=== PATIENT | female | born 1965 | race Caucasian/White ===

== ENCOUNTER 2017-12-26 17:42 | Emergency (ER) | payer BC ==
[2017-12-26 17:48] VITALS: BP 123/75; PULSE 102; RESP 18; TEMP 97.9
[2017-12-26] MEDS ORDERED: SODIUM CHLORIDE 0.9% 500 ML IV ONE (18:45)
[2017-12-26] MEDS ORDERED: MAG HYDROX/AL HYDROX/SIMETH 30 ML, HYOSCYAMINE ELIXIR 10 ML, CIMETIDINE HCL 300 MG, LID... PO STA ×4 (18:45)
--- NOTE | 2017-12-26 19:11 | XR ---
EXAMINATION TYPE: XR chest 2V DATE OF EXAM: 12/26/2017 COMPARISON: NONE HISTORY: Chest pain per order. TECHNIQUE: Frontal and lateral views of the chest are obtained. FINDINGS: There is chronic parenchymal change without suspicious focal air space opacity, pleural ef fusion, or pneumothorax seen. There is moderate biapical pleural/parenchymal scarring. The cardiac s ilhouette size is within normal limits. The osseous structures are demineralized. IMPRESSION: Chronic emphysematous change without acute pulmonary process.
--- NOTE | 2017-12-26 19:23 | ED ---
Chest Pain HPI - General Chief Complaint: Chest Pain Stated Complaint: Chest Pain Time Seen by Provider: 12/26/17 18:15 Source: patient Mode of arrival: wheelchair Limitations: no limitations - History of Present Illness Initial Comments: 52-year-old female patient presents to the emergency department today for evaluation of burning chest pain. Patient states it is mostly left-sided but does radiate over to the right side. Patient states it radiates up into her left shoulder and into her back. Patient states that this started earlier today. States that she is also feeling lightheaded. States this could be related to decreased food intake today. Patient states that she does have a history of acid reflux, but this feels much different. Patient states that she does feel mildly short of breath and nauseated. She denies any sweats or vomiting. Patient denies any recent rash, fever, chills, abdominal pain, diarrhea, constipation, back pain, numbness, tingling, weakness, hematuria, dysuria, urinary urgency, urinary frequency, visual changes, or any other complaints. - Related Data Home Medications Medication Instructions Recorded Confirmed Cetirizine HCl [Zyrtec] 10 mg PO HS 12/26/17 12/26/17 Melatonin 10 mg PO HS 12/26/17 12/26/17 Allergies Allergy/AdvReac Type Severity Reaction Status Date / Time No Known Allergies Allergy Verified 12/26/17 18:51 Review of Systems ROS Statement: Those systems with pertinent positive or pertinent negative responses have been documented in the HPI. ROS Other: All systems not noted in ROS Statement are negative. EKG Findings - EKG Comments: EKG Findings:: EKG obtained at 1813 shows normal sinus rhythm with ventricular rate of 64, AL interval 152, QR quaker 80, QT 388, QTC 400. No evidence of ST elevation or depression. Past Medical History Past Medical History: No Reported History History of Any Multi-Drug Resistant Organisms: None Reported Past Surgical History: Hysterectomy Past Psychological History: Depression Smoking Status: Current every day smoker Past Alcohol Use History: Occasional Past Drug Use History: None Reported General Exam Limitations: no limitations General appearance: alert, in no apparent distress, other (This is a well- developed, well-nourished adult female patient in no acute distress. Vital signs upon presentation are temperature 97.9F, pulse 102, respirations 18, blood pressure 123/75, pulse ox 97% on room air.) Eye exam: Present: normal appearance, PERRL, EOMI. Absent: scleral icterus, conjunctival injection, periorbital swelling ENT exam: Present: normal exam, mucous membranes moist Respiratory exam: Present: normal lung sounds bilaterally. Absent: respiratory distress, wheezes, rales, rhonchi, stridor Cardiovascular Exam: Present: regular rate, normal rhythm, normal heart sounds. Absent: systolic murmur, diastolic murmur, rubs, gallop, clicks GI/Abdominal exam: Present: soft, tenderness (Mild midepigastric tenderness), normal bowel sounds. Absent: distended, guarding, rebound, rigid Neurological exam: Present: alert, oriented X3, CN II-XII intact Psychiatric exam: Present: normal affect, normal mood Skin exam: Present: warm, dry, intact, normal color. Absent: rash Course Vital Signs 12/26/17 17:44 Temperature 97.9 F Pulse Rate 102 H Respiratory 18 Rate Blood Pressure 123/75 O2 Sat by Pulse 97 Oximetry Chest Pain MDM - [facility] RADIOLOGY:Two-view x-ray of the chest shows chronic parenchymal changes urinalysis without suspicious focal airspace opacity, pleural effusion, or pneumothorax. There is moderate biapical pleural/parenchymal scarring. The cardiac silhouette size is within normal limits. The osseous structures are demineralized. Impression by Dr. Nichols shows chronic emphysematous changes without acute pulmonary process. MDM: 52-year-old female patient presented to the emergency department today with complaints of chest pain and shortness of breath. Physical examination was unremarkable. Lungs are clear to auscultation with good air movement. Labs reviewed and are unremarkable. Initial troponin was negative. Patient had little change in her symptoms with GI cocktail or Toradol. We did repeat troponin 3 hours at the initial this was negative as well. Did discuss findings with the patient. I did discuss given her low risk and negative cardiac enzymes would be of the discharge her home at this time to follow-up with cardiology outpatient. Patient is instructed to follow-up with her primary care physician for recheck as well. Return parameters discussed in detail. She verbalizes understanding and agrees with this plan. Disposition Clinical Impression: Atypical chest pain Disposition: HOME SELF-CARE Condition: Good Instructions: Chest Pain (ED) Additional Instructions: Follow-up with cardiology as soon as possible. Return here immediately for any new, worsening, or concerning symptoms. Is patient prescribed a controlled substance at d/c from ED?: No Referrals: None,Stated [Primary Care Provider] - 1-2 days Chris Ramos MD [STAFF PHYSICIAN] - 1-2 days Time of Disposition: 22:35
[2017-12-26 19:37] LABS: Basophils # (A) 0.1 k/uL (0-0.2); Basophils % (A) 1 %; Eosinophils # (A) 0.1 k/uL (0-0.7); Eosinophils % (A) 2 %; HCT 37.6 % (34.0-46.0); HGB 12.8 gm/dL (11.4-16.0); Lymphocytes # (A) 2.9 k/uL (1.0-4.8); Lymphocytes % (A) 32 %; MCV 91.2 fL (80.0-100.0); Monocytes # (A) 0.4 k/uL (0-1.0); Monocytes % (A) 4 %; Neutrophils # (A) 5.6 k/uL (1.3-7.7); Neutrophils % (A) 60 %; Platelet Count 350 k/uL (150-450); RBC 4.13 m/uL (3.80-5.40); WBC 9.3 k/uL (3.8-10.6)
[2017-12-26 19:42] LABS: ALT 21 U/L (9-52); AST 24 U/L (14-36); Albumin 4.3 g/dL (3.5-5.0); Alkaline Phosphatase 129 U/L (38-126); Amylase 70 U/L (30-110); Anion Gap 11 mmol/L; Blood Urea Nitrogen 12 mg/dL (7-17); Calcium 9.8 mg/dL (8.4-10.2); Carbon Dioxide 23 mmol/L (22-30); Chloride 106 mmol/L (98-107); Glucose 90 mg/dL (74-99); Lipase 103 U/L (23-300); Magnesium 2.1 mg/dL (1.6-2.3); Potassium 4.7 mmol/L (3.5-5.1); Sodium 140 mmol/L (137-145); Total Bilirubin 0.7 mg/dL (0.2-1.3); Total Protein 7.2 g/dL (6.3-8.2)
[2017-12-26 20:21] LABS: Partial Thromboplastin Time 23.3 sec (22.0-30.0); Prothrombin Time 10.2 sec (9.0-12.0)
[2017-12-26 20:30] LABS: Creatine Kinase 86 U/L (30-135)
[2017-12-26 20:43] LABS: Creatine Kinase MB 0.2 ng/mL (0.0-2.4); Troponin I <0.012 ng/mL (0.000-0.034)
[2017-12-26] MEDS ORDERED: KETOROLAC 30 MG/ML 1 ML VIAL IVP STA (21:08)
== END 2017-12-26 22:52 | disposition home or self-care (01) ==
LOC: EC 17:42
DX: R07.89 Other chest pain (principal); R42 Dizziness and giddiness; R06.02 Shortness of breath; R11.0 Nausea; F17.200 Nicotine dependence, unspecified, uncomplicated; Z79.899 Other long term (current) drug therapy
CPT/HCPCS: 36415; 93005; 80053; 82150; 82550; 82553; 83690; 83735; 84484; 85025; 85610; 85730; 71046; 99285; 96374; 96361 ×2; J1885

== ENCOUNTER 2023-01-17 10:45 | Day surgery (SDC) | payer SELFPAY ==
[2023-01-14 09:00] VITALS: BMI 24.5
[~2023-01-17 10:45] MED LIST: LACTATED RINGERS 1,000 ML IV SCH; LIDOCAINE 1% (10MG/ML) FOR IV START INTRADERMA PRN; ONDANSETRON 4 MG/2 ML VIAL IVP ONE; fentaNYL (PF) 50 MCG/ML 2 ML AMP IV PRN
[2023-01-17] MEDS ORDERED: DEXAMETHASONE SOD PHOSPHATE 4 MG/ML 1 ML VIAL IVP ONE (11:31)
[2023-01-17] MEDS ORDERED: SCOPOLAMINE 1 MG/72 HR PATCH TRANSDERM ONE (11:31)
[2023-01-17] MEDS ORDERED: fentaNYL (PF) 50 MCG/1 ML VIAL IVP ONE (11:36)
[2023-01-17] MEDS ORDERED: MIDAZOLAM 2 MG/2 ML VIAL IVP ONE (11:36)
[2023-01-17] MEDS ORDERED: PROPOFOL 10 MG/ML 20 ML VIAL IV ONE (12:30)
[2023-01-17] MEDS ORDERED: ePHEDrine 50 MG/ML 1 ML VIAL ONE (12:30)
[2023-01-17] MEDS ORDERED: LIDOCAINE 2% INJ 20 MG/ML (2 ML VIAL) ONE (12:30)
[2023-01-17] MEDS ORDERED: MIDAZOLAM 2 MG/2 ML VIAL ONE (12:30)
[2023-01-17] MEDS ORDERED: fentaNYL (PF) 50 MCG/ML 2 ML AMP ONE (12:30)
[2023-01-17] MEDS ORDERED: ROPIVACAINE 5 MG/ML 30 ML VIAL ONE (12:30)
--- NOTE | 2023-01-17 12:38 | P.ANPRN ---
Procedure Note - Anesthesia - Nerve Block Performed Right Suprascapular Nerve Block Time Out Performed: Yes (1136) Date of Procedure: 01/17/23 Procedure Start Time: 11:37 Procedure Stop Time: 11:41 Location of Patient: PreOp ([facility]) Indication: Acute Post-Operative Pain, Requested by Surgeon Specifically requested for management of pain by DrKelsey: Audie Garcia Sedation Type: Sedate with meaningful contact maintained Preparation: Sterile Prep Position: Supine Catheter: None Needle Types: Pajunk Needle Gauge: 21 Ultrasound used to visualize needle placement: Yes Ultrasound used to observe medication spread: Yes Injectate: 0.5% Ropivacaine (see comment for volume) (30cc) Blood Aspirated: No Pain Paresthesia on Injection Noted: No Resistance on Injection: Normal Image Stored and Saved: Yes Events: Uneventful and Well Tolerated
[2023-01-17] MEDS ORDERED: LACTATED RINGERS 1,000 ML IV ONE (13:33)
--- NOTE | 2023-01-17 14:15 | P.OP ---
Date of Procedure: 01/17/23 Procedure(s) Performed: PREOPERATIVE DIAGNOSES: 1. Right wrist distal radius comminuted intraarticular displaced fracture POSTOPERATIVE DIAGNOSES: 1. Right wrist distal radius comminuted intraarticular displaced fracture PROCEDURES PERFORMED: 1. Right distal radius open reduction and internal fixation with volar locking plate ANESTHESIA: Gen. FIRST COAT SANDER: None COMPLICATIONS: None ESTIMATED BLOOD LOSS: 25 mL DISPOSITION: To post-anesthesia care unit INDICATIONS: Meghan is a 57-year-old female who has sustained a displaced distal radius fracture. She has had a reduction in the office but the fracture has displaced. We have discussed options and I have recommended ORIF of the distal radius. She wishes to proceed. I discussed the steps of the surgery as well as potential risks and complications as being inclusive of, but not limited to: Bleeding, infection, scarring, discomfort, blood vessel and/or nerve damage, need for further surgery, stiffness, tendon injury, persistence or recurrence of symptoms and other risks. The patient is aware of these risks and wishes to proceed with surgery. The consent form has been signed. PROCEDURE: After appropriate consent was obtained, the patient was taken to the operating room placed in the supine position. Anesthesia was initiated, and after confirmation of adequate anesthesia, the patient was carefully positioned. Care was taken to make sure that all pressure points were adequately padded. Timeout was called, confirming patient identity, side, procedure, and antibiotics were administered. Limb was exsanguinated with an Esmarch bandage and the tourniquet was inflated to 250 mmHg. Total tourniquet time for the case was approximately 55 minutes. Incision was created just radial to the flexor carpi radialis tendon. Dissection proceeded between this tendon and the radial artery, which was carefully dissected and protected throughout the case. Dissection proceeded to the deeper tissues through the sheath of the FCR tendon where the flexor pollicis longus tendon and muscle was retracted in the ulnar direction. The pronator quadratus was then noted. The wrist was rotated and the PQ was released radially from its attachment to the radius and dissected off the bone with an elevator. Organizing tissue was noted at the fracture site. This was removed as necessary for the reduction but attempt was made to preserve as much of this initial reactive healing tissue as possible. Good exposure of the fracture site was accomplished. Reduction was accomplished with careful but deliberate manual manipulation at the fracture site until an acceptable reduction had been accomplished. The fracture was comminuted with a long thin superficial fragment on the volar side of the radius. This fragment was teased into a better position but not directly fixed due to its small width. The preliminary reduction was held with a 1.6 mm pin and mini-c-arm was used to assess the reduction. Adjustments to the reduction were made as needed. Retractors were placed on the ulnar side of the bone and a 5 hole volar locking plate from [employer] was utilized and applied to the bone. The proximal slotted screw was filled first. This screw had bicortical purchase. Plate position was adjusted according to mini-c-arm guidance and a 1.6 mm pin was placed distally to hold the distal fragment. Distal row of screws was placed with assistance of the locking guides. Initial screw placed was a unicortical non locking screw to assist in bringing the bone to the plate. Each screw was sequentially checked for placement and position with mini-c-arm to make sure there was no penetration to the dorsal surface. Once these screws were placed, another proximal screw was placed in the plate and then the final mini-c-arm images were taken and saved. Thorough irrigation was performed using normal saline. Tourniquet was deflated and combination of electrocautery and pressure was used for hemostasis. Finger capillary refill was less than 2 seconds and there was no evidence of any pulsatile bleeding. Closure was performed using 3-0 Vicryl subq followed by 4- 0 nylons for the skin. Sterile dressing was applied and further pressure was held over the wound for 3 minutes for additional hemostasis. Vascular status remained good with less than 2 second capillary refill. Well padded well molded volar splint was applied with plaster slab. Patient tolerated the procedure well and taken to recovery room in stable condition. Counts were correct.
[2023-01-17 14:39] VITALS: TEMP 97
[2023-01-17] MEDS ORDERED: droPERidol 5 MG/2 ML VIAL IVP ONE (14:57)
[2023-01-17 15:34] VITALS: RESP 16
[2023-01-17 15:44] VITALS: BP 101/66; PULSE 90
== END 2023-01-17 15:53 ==
LOC: OR 10:45
PROVIDERS: ATTEND Orthopaedic Surgery
DX: S52.571A Other intraarticular fracture of lower end of right radius, initial encounter for closed fracture (principal); W01.0XXA Fall on same level from slipping, tripping and stumbling without subsequent striking against object, initial encounter; F32.A Depression, unspecified; G43.909 Migraine, unspecified, not intractable, without status migrainosus; F10.20 Alcohol dependence, uncomplicated; F17.210 Nicotine dependence, cigarettes, uncomplicated; Z88.5 Allergy status to narcotic agent; Z79.899 Other long term (current) drug therapy
CPT/HCPCS: 25608; 64415; C1713; J2250; J1100; J0690; J2405; J3010 ×2; J2795; J2704; J1790; J2001